=== PATIENT | male | born 1955 | race Caucasian/White ===

== ENCOUNTER 2018-02-12 06:34 | Inpatient (IN) | payer OTHER ==
[2018-02-12] VITALS (15 sets, daily range): BP systolic 85–113; BP diastolic 51–83
[~2018-02-12] VITALS: Ht 180.3 cm; Wt 116.3 kg
[2018-02-12 07:19] LABS: PLATELET COUNT 270 x10^3mcL (130-400)
[2018-02-12 07:21] LABS: RED CELL DISTRIBUTION WIDTH 15.4 % (11.5-14.5)
[2018-02-12 07:26] LABS: CALCIUM 8.5 mg/dL (8.5-10.1); CARBON DIOXIDE 38.6 mmol/L (21-32); CREATININE SERUM 1.4 mg/dL (0.7-1.3); POTASSIUM SERUM 5.4 mmol/L (3.5-5.1)
[2018-02-12 07:30] LABS: PHOSPHOROUS 7.1 mg/dL (2.5-4.9); TOTAL PROTEIN, SERUM 7.2 g/dL (6.4-8.2); URIC ACID 8.1 mg/dL (3.5-7.2)
[2018-02-12] MEDS ORDERED: PULMICORT180 MCG/Ac INH (07:41)
[2018-02-12] MEDS ORDERED: ELIQUIS5 MG PO (07:41)
[2018-02-12] MEDS ORDERED: MYCC TOP (07:41)
[2018-02-12] MEDS ORDERED: CARVEDILOL6.25 M1 PO (07:41)
[2018-02-12] MEDS ORDERED: DICLOFENAC SOD50 M1 PO (07:42)
[2018-02-12] MEDS ORDERED: LASIX40 MG PO (07:42)
[2018-02-12] MEDS ORDERED: DELTASONE20 MG PO (07:43)
[2018-02-12] MEDS ORDERED: DICLOFENAC SODI50 MG PO (07:44)
[2018-02-12] MEDS ORDERED: NOR10T PO (07:44)
[2018-02-12] MEDS ORDERED: VENTOLIN H0.09 MG/A1 INH (07:45)
[2018-02-12] MEDS ORDERED: COZAAR25 M1 PO (07:45)
[2018-02-12] MEDS ORDERED: ASPIRIN ADULT L81 M3 PO (07:45)
[2018-02-12 08:21] LABS: UA SPECIFIC GRAVITY >=1.030 (1.005-1.035); microscopic required? YES; urine erythrocyte TRACE (NEGATIVE)
[2018-02-12 08:49] LABS: BAND NEUTROPHIL 2 % (0-10); BASOPHIL 0 % (0-2); MONOCYTE 5 % (0-7)
[2018-02-12 08:50] LABS: SEGMENTED NEUTROPHILS 90 % (37-75)
[2018-02-12 08:52] LABS: rbc morphology (normal/abnorm) ABNORMAL (NORMAL)
[2018-02-12 20:57] LABS: ALKALINE PHOSPHATASE 51 U/L (46-116); ALT/SGPT 253 U/L (16-63); AST/SGOT 198 U/L (15-37); CALCIUM 8.1 mg/dL (8.5-10.1); CARBON DIOXIDE 39.1 mmol/L (21-32); CHLORIDE SERUM 102 mmol/L (98-107); CREATININE SERUM 1.2 mg/dL (0.7-1.3); GFR1 > 60 mL/min; GLUCOSE SERUM 165 mg/dL (74-106); POTASSIUM SERUM 4.3 mmol/L (3.5-5.1); SODIUM SERUM 137 mmol/L (136-145); TOTAL PROTEIN, SERUM 6.2 g/dL (6.4-8.2)
[2018-02-12 20:58] LABS: ALBUMIN 2.7 g/dL (3.4-5.0)
[2018-02-13] VITALS (18 sets, daily range): BP systolic 84–188; BP diastolic 56–76
[2018-02-13 05:58] LABS: PLATELET COUNT 220 x10^3mcL (130-400)
[2018-02-13 06:06] LABS: RED CELL DISTRIBUTION WIDTH 14.8 % (11.5-14.5)
[2018-02-13 06:17] LABS: ALKALINE PHOSPHATASE 52 U/L (46-116); ALT/SGPT 255 U/L (16-63); AST/SGOT 154 U/L (15-37); BILIRUBIN TOTAL 0.88 mg/dL (0.20-1.00); CALCIUM 8.4 mg/dL (8.5-10.1); CHLORIDE SERUM 100 mmol/L (98-107); GFR1 > 60 mL/min; GLUCOSE SERUM 160 mg/dL (74-106); MAGNESIUM 2.3 mg/dL (1.8-2.4); POTASSIUM SERUM 3.5 mmol/L (3.5-5.1); SODIUM SERUM 144 mmol/L (136-145); TOTAL PROTEIN, SERUM 6.3 g/dL (6.4-8.2)
[2018-02-13 06:19] LABS: BAND NEUTROPHIL 4 % (0-10); MONOCYTE 4 % (0-7); SEGMENTED NEUTROPHILS 86 % (37-75)
[2018-02-13 06:20] LABS: ALBUMIN 2.7 g/dL (3.4-5.0)
[2018-02-13 06:22] LABS: PLATELET MORPHOLOGY FEW LARGE PLATELETS; rbc morphology (normal/abnorm) ABNORMAL (NORMAL)
[2018-02-14] VITALS (15 sets, daily range): BP systolic 83–119; BP diastolic 49–83
[2018-02-14 04:35] LABS: BASOPHIL % 1.4 % (0-2); PLATELET COUNT 200 x10^3mcL (130-400)
[2018-02-14 04:51] LABS: RED CELL DISTRIBUTION WIDTH 15.8 % (11.5-14.5)
[2018-02-14 04:53] LABS: ALKALINE PHOSPHATASE 48 U/L (46-116); ALT/SGPT 277 U/L (16-63); AST/SGOT 134 U/L (15-37); BILIRUBIN TOTAL 0.73 mg/dL (0.20-1.00); CALCIUM 8.6 mg/dL (8.5-10.1); CHLORIDE SERUM 101 mmol/L (98-107); CREATININE SERUM 1.1 mg/dL (0.7-1.3); GFR1 > 60 mL/min; GLUCOSE SERUM 179 mg/dL (74-106); MAGNESIUM 2.6 mg/dL (1.8-2.4); SODIUM SERUM 143 mmol/L (136-145); TOTAL PROTEIN, SERUM 6.2 g/dL (6.4-8.2)
[2018-02-14 04:55] LABS: ALBUMIN 2.6 g/dL (3.4-5.0)
[2018-02-14 05:05] LABS: CARBON DIOXIDE > 45.0 mmol/L (21-32)
[2018-02-15] VITALS (16 sets, daily range): BP systolic 80–142; BP diastolic 50–71
[2018-02-15 05:26] LABS: BASOPHIL % 1.1 % (0-2); PLATELET COUNT 198 x10^3mcL (130-400)
[2018-02-15 05:29] LABS: RED CELL DISTRIBUTION WIDTH 15.2 % (11.5-14.5)
[2018-02-15 05:43] LABS: CALCIUM 8.9 mg/dL (8.5-10.1); CHLORIDE SERUM 103 mmol/L (98-107); CREATININE SERUM 1.1 mg/dL (0.7-1.3); GFR1 > 60 mL/min; GLUCOSE SERUM 178 mg/dL (74-106); MAGNESIUM 2.9 mg/dL (1.8-2.4); SODIUM SERUM 146 mmol/L (136-145)
[2018-02-15 05:57] LABS: CARBON DIOXIDE 43.4 mmol/L (21-32)
[2018-02-16] VITALS (19 sets, daily range): BP systolic 94–137; BP diastolic 58–84
[2018-02-16 05:27] LABS: BASOPHIL % 0.3 % (0-2); PLATELET COUNT 191 x10^3mcL (130-400)
[2018-02-16 05:36] LABS: RED CELL DISTRIBUTION WIDTH 14.9 % (11.5-14.5)
[2018-02-16 05:56] LABS: CALCIUM 9.6 mg/dL (8.5-10.1); CARBON DIOXIDE 38.3 mmol/L (21-32); CHLORIDE SERUM 104 mmol/L (98-107); CREATININE SERUM 0.9 mg/dL (0.7-1.3); GFR1 > 60 mL/min; GLUCOSE SERUM 157 mg/dL (74-106); POTASSIUM SERUM 4.1 mmol/L (3.5-5.1); SODIUM SERUM 146 mmol/L (136-145)
[2018-02-17] VITALS (18 sets, daily range): BP systolic 92–132; BP diastolic 62–78
[2018-02-17 05:36] LABS: PLATELET COUNT 188 x10^3mcL (130-400)
[2018-02-17 05:49] LABS: RED CELL DISTRIBUTION WIDTH 15.3 % (11.5-14.5)
[2018-02-17 05:51] LABS: CALCIUM 9.4 mg/dL (8.5-10.1); CHLORIDE SERUM 105 mmol/L (98-107); CREATININE SERUM 1.1 mg/dL (0.7-1.3); GFR1 > 60 mL/min; GLUCOSE SERUM 180 mg/dL (74-106); MAGNESIUM 2.9 mg/dL (1.8-2.4); POTASSIUM SERUM 3.8 mmol/L (3.5-5.1); SODIUM SERUM 148 mmol/L (136-145)
[2018-02-17 06:11] LABS: BAND NEUTROPHIL 6 % (0-10); MONOCYTE 4 % (0-7); SEGMENTED NEUTROPHILS 86 % (37-75)
[2018-02-17 06:12] LABS: PLATELET MORPHOLOGY PLATELETS NORMAL; rbc morphology (normal/abnorm) NORMAL (NORMAL)
[2018-02-18] VITALS (14 sets, daily range): BP systolic 91–119; BP diastolic 49–77
[2018-02-18 05:44] LABS: CALCIUM 9.1 mg/dL (8.5-10.1); CHLORIDE SERUM 113 mmol/L (98-107); CREATININE SERUM 1.1 mg/dL (0.7-1.3); GFR1 > 60 mL/min; GLUCOSE SERUM 163 mg/dL (74-106); POTASSIUM SERUM 4.1 mmol/L (3.5-5.1); SODIUM SERUM 151 mmol/L (136-145)
[2018-02-18 05:55] LABS: CARBON DIOXIDE 40.7 mmol/L (21-32)
[2018-02-18 06:15] LABS: PLATELET COUNT 180 x10^3mcL (130-400); RED CELL DISTRIBUTION WIDTH 15.2 % (11.5-14.5)
[2018-02-18 06:16] LABS: BAND NEUTROPHIL 2 % (0-10); SEGMENTED NEUTROPHILS 26 % (37-75)
[2018-02-18 06:17] LABS: ATYPICAL LYMPH 0 %; MONOCYTE 2 % (0-7)
[2018-02-18 06:18] LABS: PLATELET MORPHOLOGY D; rbc morphology (normal/abnorm) ABNORMAL (NORMAL)
[2018-02-19 03:10] VITALS: BP 114/69
[2018-02-19 05:29] LABS: PLATELET COUNT 194 x10^3mcL (130-400)
[2018-02-19 05:41] LABS: RED CELL DISTRIBUTION WIDTH 15.9 % (11.5-14.5)
[2018-02-19 05:43] LABS: ALKALINE PHOSPHATASE 42 U/L (46-116); ALT/SGPT 184 U/L (16-63); AST/SGOT 39 U/L (15-37); BILIRUBIN TOTAL 1.34 mg/dL (0.20-1.00); CARBON DIOXIDE 39.5 mmol/L (21-32); CHLORIDE SERUM 115 mmol/L (98-107); CREATININE SERUM 0.9 mg/dL (0.7-1.3); GFR1 > 60 mL/min; GLUCOSE SERUM 116 mg/dL (74-106); POTASSIUM SERUM 4.2 mmol/L (3.5-5.1); SODIUM SERUM 157 mmol/L (136-145); TOTAL PROTEIN, SERUM 6.4 g/dL (6.4-8.2)
[2018-02-19 05:49] LABS: ALBUMIN 2.9 g/dL (3.4-5.0)
[2018-02-19 06:41] LABS: BAND NEUTROPHIL 1 % (0-10); BASOPHIL 0 % (0-2); MONOCYTE 1 % (0-7); SEGMENTED NEUTROPHILS 97 % (37-75)
[2018-02-19 06:43] LABS: PLATELET MORPHOLOGY PLATELETS DECREASED; rbc morphology (normal/abnorm) ABNORMAL (NORMAL)
[2018-02-19 08:00] VITALS: BP 104/64
[2018-02-19 12:30] VITALS: BP 107/67
[2018-02-19 16:30] VITALS: BP 107/67
[2018-02-19 20:14] VITALS: BP 102/58
[2018-02-19 23:49] VITALS: BP 109/72
[2018-02-20 03:18] VITALS: BP 107/66
[2018-02-20 05:44] LABS: PLATELET COUNT 151 x10^3mcL (130-400)
[2018-02-20 05:52] LABS: CALCIUM 8.2 mg/dL (8.5-10.1); CARBON DIOXIDE 36.9 mmol/L (21-32); CHLORIDE SERUM 101 mmol/L (98-107); CREATININE SERUM 0.8 mg/dL (0.7-1.3); GFR1 > 60 mL/min; GLUCOSE SERUM 113 mg/dL (74-106); POTASSIUM SERUM 3.4 mmol/L (3.5-5.1); SODIUM SERUM 137 mmol/L (136-145)
[2018-02-20 06:19] LABS: RED CELL DISTRIBUTION WIDTH 14.9 % (11.5-14.5)
[2018-02-20 07:54] VITALS: Ht 180.3 cm; Wt 116.3 kg
[2018-02-20 07:56] LABS: MONOCYTE 4 % (0-7); SEGMENTED NEUTROPHILS 77 % (37-75)
[2018-02-20 07:57] LABS: BAND NEUTROPHIL 10 % (0-10); METAMYELOCTE 2 % (0-2); MYELOCYTE 1 % (0-2)
[2018-02-20 07:59] LABS: ovalocyte/elliptocyte 1+
[2018-02-20 08:00] VITALS: BP 90/59
[2018-02-20 08:00] LABS: rbc morphology (normal/abnorm) ABNORMAL (NORMAL)
[2018-02-20 08:01] LABS: PLATELET MORPHOLOGY PLATELETS NORMAL
[2018-02-20 11:30] VITALS: BP 121/76
[2018-02-20 16:45] VITALS: BP 95/46
[2018-02-20 20:05] VITALS: BP 102/51
[2018-02-20 23:40] VITALS: BP 93/60
[2018-02-21 03:59] VITALS: BP 111/69
[2018-02-21 05:16] LABS: PLATELET COUNT 175 x10^3mcL (130-400)
[2018-02-21 05:22] LABS: RED CELL DISTRIBUTION WIDTH 14.8 % (11.5-14.5)
[2018-02-21 05:27] LABS: CALCIUM 8.6 mg/dL (8.5-10.1); CARBON DIOXIDE 32.7 mmol/L (21-32); CHLORIDE SERUM 102 mmol/L (98-107); CREATININE SERUM 0.7 mg/dL (0.7-1.3); GFR1 > 60 mL/min; GLUCOSE SERUM 100 mg/dL (74-106); POTASSIUM SERUM 3.3 mmol/L (3.5-5.1); SODIUM SERUM 138 mmol/L (136-145)
[2018-02-21 06:16] LABS: BAND NEUTROPHIL 0 % (0-10); BASOPHIL 0 % (0-2); MONOCYTE 6 % (0-7); SEGMENTED NEUTROPHILS 80 % (37-75); rbc morphology (normal/abnorm) NORMAL (NORMAL)
[2018-02-21 06:17] LABS: PLATELET MORPHOLOGY LARGE PLATELET SEEN
[2018-02-21 08:00] VITALS: BP 91/66
[2018-02-21 16:52] VITALS: BP 101/55
[2018-02-21 21:01] VITALS: BP 101/63
[2018-02-22] VITALS (7 sets, daily range): BP systolic 86–99; BP diastolic 49–62
[2018-02-22 05:56] LABS: PLATELET COUNT 186 x10^3mcL (130-400)
[2018-02-22 05:59] LABS: RED CELL DISTRIBUTION WIDTH 14.7 % (11.5-14.5)
[2018-02-22 06:15] LABS: CALCIUM 8.5 mg/dL (8.5-10.1); CARBON DIOXIDE 31.6 mmol/L (21-32); CHLORIDE SERUM 104 mmol/L (98-107); CREATININE SERUM 0.6 mg/dL (0.7-1.3); GFR1 > 60 mL/min; GLUCOSE SERUM 101 mg/dL (74-106); MAGNESIUM 2.3 mg/dL (1.8-2.4); POTASSIUM SERUM 3.6 mmol/L (3.5-5.1); SODIUM SERUM 140 mmol/L (136-145)
[2018-02-22 09:26] LABS: MONOCYTE 5 % (0-7); SEGMENTED NEUTROPHILS 82 % (37-75)
[2018-02-22 09:27] LABS: BAND NEUTROPHIL 0 % (0-10); BASOPHIL 0 % (0-2)
[2018-02-23 04:27] VITALS: BP 91/61
[2018-02-23 07:38] LABS: ALKALINE PHOSPHATASE 36 U/L (46-116); ALT/SGPT 113 U/L (16-63); AST/SGOT 47 U/L (15-37); BILIRUBIN TOTAL 0.71 mg/dL (0.20-1.00); CALCIUM 8.4 mg/dL (8.5-10.1); CHLORIDE SERUM 102 mmol/L (98-107); CREATININE SERUM 0.8 mg/dL (0.7-1.3); GFR1 > 60 mL/min; GLUCOSE SERUM 96 mg/dL (74-106); MAGNESIUM 2.2 mg/dL (1.8-2.4); PHOSPHOROUS 3.3 mg/dL (2.5-4.9); POTASSIUM SERUM 3.4 mmol/L (3.5-5.1); SODIUM SERUM 139 mmol/L (136-145)
[2018-02-23 07:40] LABS: ALBUMIN 2.7 g/dL (3.4-5.0); TOTAL PROTEIN, SERUM 5.4 g/dL (6.4-8.2)
[2018-02-23 08:06] LABS: PLATELET COUNT 216 x10^3mcL (130-400); RED CELL DISTRIBUTION WIDTH 15.3 % (11.5-14.5)
[2018-02-23 08:59] VITALS: BP 91/55
[2018-02-23 10:39] LABS: BAND NEUTROPHIL 7 % (0-10); BASOPHIL 0 % (0-2); MONOCYTE 6 % (0-7); SEGMENTED NEUTROPHILS 77 % (37-75)
[2018-02-23 10:40] LABS: rbc morphology (normal/abnorm) ABNORMAL (NORMAL)
[2018-02-23 12:55] VITALS: BP 93/53
[2018-02-23 16:58] VITALS: BP 86/49
[2018-02-23 21:55] VITALS: BP 94/57
[2018-02-24 05:49] VITALS: BP 80/50
[2018-02-24 06:08] LABS: PLATELET COUNT 234 x10^3mcL (130-400)
[2018-02-24 06:24] LABS: RED CELL DISTRIBUTION WIDTH 15.8 % (11.5-14.5)
[2018-02-24 06:36] LABS: ALKALINE PHOSPHATASE 35 U/L (46-116); ALT/SGPT 124 U/L (16-63); AST/SGOT 52 U/L (15-37); CALCIUM 8.1 mg/dL (8.5-10.1); CARBON DIOXIDE 30.4 mmol/L (21-32); CHLORIDE SERUM 101 mmol/L (98-107); CREATININE SERUM 0.9 mg/dL (0.7-1.3); GFR1 > 60 mL/min; GLUCOSE SERUM 94 mg/dL (74-106); MAGNESIUM 2.2 mg/dL (1.8-2.4); PHOSPHOROUS 3.4 mg/dL (2.5-4.9); POTASSIUM SERUM 3.2 mmol/L (3.5-5.1); SODIUM SERUM 139 mmol/L (136-145)
[2018-02-24 06:51] LABS: ALBUMIN 2.6 g/dL (3.4-5.0); TOTAL PROTEIN, SERUM 5.1 g/dL (6.4-8.2)
[2018-02-24 08:54] VITALS: BP 89/58
[2018-02-24 09:56] LABS: BAND NEUTROPHIL 8 % (0-10); BASOPHIL 0 % (0-2); METAMYELOCTE 1 % (0-2); MONOCYTE 5 % (0-7); SEGMENTED NEUTROPHILS 71 % (37-75); rbc morphology (normal/abnorm) ABNORMAL (NORMAL)
[2018-02-24 09:57] LABS: PLATELET MORPHOLOGY LARGE PLATELET SEEN; ovalocyte/elliptocyte 1+
[2018-02-24 13:06] VITALS: BP 88/63
[2018-02-24 15:34] VITALS: BP 88/63
[2018-02-24 16:58] VITALS: BP 93/33
[2018-02-24 20:54] VITALS: BP 95/58
== END 2018-02-24 22:45 | DRG 720 ==
LOC: ED 06:34 → IC 09:13 → DU 09:13 → IC 09:50 → DU 02-21 10:31
PROVIDERS: Emergency Medicine; Internal Medicine Cardiovascular Disease; Internal Medicine Pulmonary Disease
PROC: 5A1955Z Respiratory Ventilation, Greater than 96 Consecutive Hours (ICD-10-PCS; principal; 2018-02-12)
PROC: 0BH17EZ Insertion of Endotracheal Airway into Trachea, Via Natural or Artificial Opening (ICD-10-PCS; 2018-02-12)
PROC: 02H633Z Insertion of Infusion Device into Right Atrium, Percutaneous Approach (ICD-10-PCS; 2018-02-12)
PROC: B244ZZZ Ultrasonography of Right Heart (ICD-10-PCS; 2018-02-12)
DX: A41.9 Sepsis, unspecified organism (principal); J96.21 Acute and chronic respiratory failure with hypoxia; J69.0 Pneumonitis due to inhalation of food and vomit; I50.43 Acute on chronic combined systolic (congestive) and diastolic (congestive) heart failure; G93.41 Metabolic encephalopathy; J90 Pleural effusion, not elsewhere classified; A04.72 Enterocolitis due to Clostridium difficile, not specified as recurrent; I11.0 Hypertensive heart disease with heart failure; E66.01 Morbid (severe) obesity due to excess calories; J96.22 Acute and chronic respiratory failure with hypercapnia; I70.0 Atherosclerosis of aorta; E87.0 Hyperosmolality and hypernatremia; I48.0 Paroxysmal atrial fibrillation; J44.1 Chronic obstructive pulmonary disease with (acute) exacerbation; R53.81 Other malaise; I35.0 Nonrheumatic aortic (valve) stenosis; E87.6 Hypokalemia; E78.5 Hyperlipidemia, unspecified; Z68.41 Body mass index [BMI] 40.0-44.9, adult; Z88.1 Allergy status to other antibiotic agents
CPT/HCPCS: 36600; 83880; 97110-GP; 97116-GP; 97530-GP; 97535-GP; A4628; C9113; J0282; J0456; J0696; J1120; J1160; J1940; J2001; J2060; J2250; J2543; J2920; J3370; J3480; J3490; J7030; J7040; J7050; J7613; J7620; J7626; J7644; Q0092

== ENCOUNTER 2018-03-07 09:51 | Inpatient (IN) | payer OTHER ==
[~2018-03-07] VITALS: Ht 175.3 cm; Wt 130.0 kg
[~2018-03-07 09:51] MED LIST: ASPIRIN ADULT L81 M3 PO; CARVEDILOL6.25 M1 PO; COZAAR25 M1 PO; DELTASONE20 MG PO; DICLOFENAC SOD50 M1 PO; DICLOFENAC SODI50 MG PO; ELIQUIS5 MG PO; LASIX40 MG PO; MYCC TOP; NOR10T PO; PULMICORT180 MCG/Ac INH; VENTOLIN H0.09 MG/A1 INH
[2018-03-07 09:58] VITALS: Ht 175.3 cm; Wt 130.0 kg
[2018-03-07 11:03] LABS: PLATELET COUNT 226 x10^3mcL (130-400)
[2018-03-07 11:05] LABS: RED CELL DISTRIBUTION WIDTH 18.4 % (11.5-14.5)
[2018-03-07 11:14] LABS: CALCIUM 8.7 mg/dL (8.5-10.1); CARBON DIOXIDE 30.8 mmol/L (21-32); CHLORIDE SERUM 97 mmol/L (98-107); CREATININE SERUM 1.1 mg/dL (0.7-1.3); GFR1 > 60 mL/min; GLUCOSE SERUM 298 mg/dL (74-106); POTASSIUM SERUM 3.9 mmol/L (3.5-5.1); SODIUM SERUM 139 mmol/L (136-145)
[2018-03-07 11:20] LABS: ALKALINE PHOSPHATASE 60 U/L (46-116); ALT/SGPT 39 U/L (16-63); AST/SGOT 43 U/L (15-37); BILIRUBIN TOTAL 0.92 mg/dL (0.20-1.00); TOTAL PROTEIN, SERUM 6.8 g/dL (6.4-8.2)
[2018-03-07 11:25] LABS: ALBUMIN 2.7 g/dL (3.4-5.0)
[2018-03-07 11:40] LABS: BAND NEUTROPHIL 15 % (0-10); BASOPHIL 0 % (0-2); METAMYELOCTE 1 % (0-2); MONOCYTE 4 % (0-7); MYELOCYTE 2 % (0-2); SEGMENTED NEUTROPHILS 66 % (37-75); rbc morphology (normal/abnorm) ABNORMAL (NORMAL)
[2018-03-07 12:13] LABS: UA SPECIFIC GRAVITY 1.025 (1.005-1.035); microscopic required? YES; urine erythrocyte 2+ (NEGATIVE)
[2018-03-07 16:29] VITALS: BP 87/49
== END 2018-03-07 20:00 | disposition expired | DRG 133 ==
LOC: ED 09:51 → IC 13:52
PROVIDERS: Emergency Medicine
PROC: 5A12012 Performance of Cardiac Output, Single, Manual (ICD-10-PCS; principal; 2018-03-07)
PROC: 5A09357 Assistance with Respiratory Ventilation, Less than 24 Consecutive Hours, Continuous Positive Airway Pressure (ICD-10-PCS; 2018-03-07)
PROC: 02HV33Z Insertion of Infusion Device into Superior Vena Cava, Percutaneous Approach (ICD-10-PCS; 2018-03-07)
DX: J96.21 Acute and chronic respiratory failure with hypoxia (principal); I46.9 Cardiac arrest, cause unspecified; I42.9 Cardiomyopathy, unspecified; I11.0 Hypertensive heart disease with heart failure; I50.9 Heart failure, unspecified; J44.9 Chronic obstructive pulmonary disease, unspecified; I35.0 Nonrheumatic aortic (valve) stenosis; E78.00 Pure hypercholesterolemia, unspecified; I48.0 Paroxysmal atrial fibrillation; Z88.8 Allergy status to other drugs, medicaments and biological substances; Z79.82 Long term (current) use of aspirin; Z87.01 Personal history of pneumonia (recurrent); Z79.899 Other long term (current) drug therapy
CPT/HCPCS: 36600; 83880; J0696; J1940; J1956; J2001; J2060; J2543; J2930; J3490; J7030; J7613; J7644; Q0092